=== PATIENT | female | born 1955 | race Caucasian/White ===

== ENCOUNTER → 2020-03-30 | Outpatient (CLI) | payer BC ==
[~2020-03-30] MED LIST: ADDERALL 15 MG15 MG PO; ALLI60 MG PO; ARAVA20 MG PO; CEVIMELINE HCL30 MG PO; CYMBALTA30 MG PO; FOLIC ACID1 MG PO; METHOTREXATE 22.5 MG PO; RELAFEN PO; RESTASIS1 EACH OPHTHALMIC; TRAMADOL 50 MG50 MG PO; WELLBUTRIN SR150 MG PO; ZOCOR 20 MG TAB20 M1 PO
== END ==
LOC: LAB 14:58
PROVIDERS: ATTEND Anesthesiology
DX: Z01.812 Encounter for preprocedural laboratory examination (principal); Z20.828 Contact with and (suspected) exposure to other viral communicable diseases

== ENCOUNTER → 2020-06-19 | Outpatient (CLI) | payer BC, OTHER | LOC: LAB 09:45 | PROVIDERS: ATTEND Family Medicine | DX: Z20.828 Contact with and (suspected) exposure to other viral communicable diseases (principal) ==